=== PATIENT | male | born 1960 | race Caucasian/White ===

== ENCOUNTER 2017-08-22 13:52 | Emergency (ER) | payer BC, OTHER ==
[2017-08-22] MEDS ORDERED: ALBUTEROL 2.5 MG/3 ML NEB SOL ONE (14:37)
[2017-08-22] MEDS ORDERED: IPRATROPIUM BROM 0.5MG/2.5ML ONE (14:37)
--- NOTE | 2017-08-22 15:11 | RAD REPORT ---
EXAM DESCRIPTION: Kwaku Ruffin (2 Views)08/22/2017 2:53 pm CLINICAL HISTORY: Cough COMPARISON: 2009 FINDINGS: The lungs appear clear of acute infiltrate. The heart is normal size IMPRESSION: No acute abnormalities displayed
--- NOTE | 2017-08-22 15:23 | ER ---
Nurse's Notes [facility] Name: Brain Guadarrama Age: 57 yrs Sex: Male : 1960 Arrival Date: 08/22/2017 Time: 13:57 Bed 6 Private MD: Abhi Vaughn Diagnosis: Bronchitis, not specified as acute or chronic Presentation: 08/22 14:00 Presenting complaint: Patient states: productive cough for 3 days. Transition of care: la1 patient was not received from another setting of care. Onset of symptoms was August 22, 2017. Care prior to arrival: None. 14:00 Method Of Arrival: Ambulatory la1 14:00 Acuity: LISA 3 la1 Historical: - Allergies: 14:00 No Known Allergies; la1 - PMHx: 14:00 None; la1 - Immunization history:: Adult Immunizations up to date. - Social history:: Smoking status: Patient/guardian denies using tobacco. Screenin:09 Abuse screen: Denies threats or abuse. Nutritional screening: No deficits noted. ae1 Tuberculosis screening: No symptoms or risk factors identified. Fall Risk None identified. Assessment: 14:09 General: Appears in no apparent distress. uncomfortable, Behavior is calm, cooperative. ae1 Pain: Complains of pain in uvula, left aspect of posterior pharynx and right aspect of posterior pharynx. Neuro: Level of Consciousness is awake, alert, obeys commands, Oriented to person, place, time, situation. Cardiovascular: Heart tones S1 S2 present Patient's skin is warm and dry. Respiratory: Airway is patent Respiratory effort is even, unlabored, Breath sounds are clear bilaterally. GI: Bowel sounds present X 4 quads. Abd is soft and non tender X 4 quads. Patient currently denies diarrhea, nausea, pain, vomiting. : No signs and/or symptoms were reported regarding the genitourinary system. EENT: Reports nasal congestion Painful swallowing. nasal discharge. Derm: Skin is pale. Musculoskeletal: No signs and/or symptoms reported regarding the musculoskeletal system. 14:09 Respiratory: Reports shortness of breath cough that is productive, hacking. ae1 Vital Signs: 14:00 Pulse 86; Resp 16; Temp 98.2(TE); Pulse Ox 100% on R/A; Weight 104.33 kg; Height 5 ft. la1 11 in. (180.34 cm); 14:01 BP 122 / 86; la1 15:26 BP 133 / 82; Pulse 87; Resp 16; Temp 98(O); Pulse Ox 95% on R/A; ae1 14:00 Body Mass Index 32.08 (104.33 kg, 180.34 cm) la1 ED Course: 13:57 Patient arrived in ED. rg4 13:57 Abhi Vaughn MD is Private Physician. rg4 14:00 Triage completed. la1 14:01 Arm band placed on left wrist. la1 14:08 Jan Subramanian, RN is Primary Nurse. ae1 14:11 Brandi Conde FNP-C is [facility]. kb 14:11 Bed in low position. Call light in reach. Side rails up X 1. Pulse ox on. NIBP on. ae1 14:12 David Menezes MD is Attending Physician. kb 14:51 Chest Pa And Lat (2 Views) XRAY In Process Unspecified. EDMS 15:27 No provider procedures requiring assistance completed. Patient did not have IV access ae1 during this emergency room visit. Administered Medications: 14:22 Drug: DuoNeb (3:1) (2.5 mg - 0.5 mg) 3 ml Route: Nebulizer; ae1 15:30 Follow up: Response: Other; SOB decreased. ae1 15:30 Not Given (Patient was discharged prior to medication administration, provider ae1 notified. ): predniSONE 40 mg PO once Intake: Outcome: 15:22 Discharge ordered by MD. kb 15:27 Discharged to home ambulatory, with significant other. ae1 15:27 Condition: stable 15:27 Discharge instructions given to patient, Instructed on discharge instructions, follow up and referral plans. medication usage, Demonstrated understanding of instructions, Prescriptions given X 2. 15:31 Patient left the ED. ae1 Signatures: Dispatcher [employer] EDMS Brandi Conde FNP-C FNP-Ckb Attema, Lee, RN RN la1 Jan Subramanian, RN RN ae1 Cleopatra Diaz rg4 Corrections: (The following items were deleted from the chart) 15:31 15:26 BP 133 / 82; Pulse 87bpm; Pulse Ox 95% RA; ae1 ae1
--- NOTE | 2017-08-22 15:23 | EDPHYS ---
Physician Documentation [facility] Name: Brain Guadarrama Age: 57 yrs Sex: Male : 1960 Arrival Date: 08/22/2017 Time: 13:57 Bed 6 Private MD: Abhi Vaughn ED Physician David Menezes HPI: 08/22 14:19 This 57 yrs old Male presents to ER via Ambulatory with complaints of Chest kb Congestion, Cough. 14:19 The patient or guardian reports cough, that is intermittent, described as moderate, kb with no sputum. Onset: The symptoms/episode began/occurred 2 day(s) ago. Severity of symptoms: At their worst the symptoms were moderate, in the emergency department the symptoms are unchanged. Modifying factors: The symptoms are alleviated by nothing, the symptoms are aggravated by nothing. Associated signs and symptoms: Pertinent positives: rhinorrhea, sore throat, Pertinent negatives: chest pain, diarrhea, ear ache, fever, nausea, vomiting. The patient has not experienced similar symptoms in the past. The patient has not recently seen a physician. 14:20 Pt states he has had a cough, congestion, sore throat and not able to sleep due to kb cough. States it started 2 days ago. Started with runny nose, then sore throat and now cough. "Feels like bronchitis or pneumonia.". Historical: - Allergies: 14:00 No Known Allergies; la1 - PMHx: 14:00 None; la1 - Immunization history:: Adult Immunizations up to date. - Social history:: Smoking status: Patient/guardian denies using tobacco. ROS: 14:20 Constitutional: Negative for fever, chills, and weight loss, Cardiovascular: Negative kb for chest pain, palpitations, and edema, Abdomen/GI: Negative for abdominal pain, nausea, vomiting, diarrhea, and constipation, Back: Negative for injury and pain, MS/Extremity: Negative for injury and deformity, Skin: Negative for injury, rash, and discoloration, Neuro: Negative for headache, weakness, numbness, tingling, and seizure. 14:20 ENT: Positive for rhinorrhea, sore throat. 14:20 Respiratory: Positive for cough, with no reported sputum, Negative for dyspnea on exertion, hemoptysis, orthopnea, pleurisy, shortness of breath, sputum production, wheezing. Exam: 14:20 Constitutional: This is a well developed, well nourished patient who is awake, alert, kb and in no acute distress. Head/Face: Normocephalic, atraumatic. Neck: Trachea midline, no thyromegaly or masses palpated, and no cervical lymphadenopathy. Supple, full range of motion without nuchal rigidity, or vertebral point tenderness. No Meningismus. Chest/axilla: Normal chest wall appearance and motion. Nontender with no deformity. No lesions are appreciated. Cardiovascular: Regular rate and rhythm with a normal S1 and S2. No gallops, murmurs, or rubs. Normal PMI, no JVD. No pulse deficits. Respiratory: Lungs have equal breath sounds bilaterally, clear to auscultation and percussion. No rales, rhonchi or wheezes noted. No increased work of breathing, no retractions or nasal flaring. Abdomen/GI: Soft, non-tender, with normal bowel sounds. No distension or tympany. No guarding or rebound. No evidence of tenderness throughout. Skin: Warm, dry with normal turgor. Normal color with no rashes, no lesions, and no evidence of cellulitis. MS/ Extremity: Pulses equal, no cyanosis. Neurovascular intact. Full, normal range of motion. Neuro: Awake and alert, GCS 15, oriented to person, place, time, and situation. Cranial nerves II-XII grossly intact. Motor strength 5/5 in all extremities. Sensory grossly intact. Cerebellar exam normal. Normal gait. 14:20 ENT: External ear(s): are unremarkable, Ear canal(s): are normal, TM's: are normal, Nose: is normal, Mouth: is normal, Posterior pharynx: Airway: normal, Tonsils: are normal in appearance, with erythema, Uvula: normal, midline, swelling, is not appreciated, erythema, that is moderate, exudate, is not appreciated. Vital Signs: 14:00 Pulse 86; Resp 16; Temp 98.2(TE); Pulse Ox 100% on R/A; Weight 104.33 kg; Height 5 ft. la1 11 in. (180.34 cm); 14:01 BP 122 / 86; la1 15:26 BP 133 / 82; Pulse 87; Resp 16; Temp 98(O); Pulse Ox 95% on R/A; ae1 14:00 Body Mass Index 32.08 (104.33 kg, 180.34 cm) la1 MDM: 14:12 Patient medically screened. kb 14:20 Data reviewed: vital signs, nurses notes. Data interpreted: Pulse oximetry: on room air kb is 100 %. Interpretation: normal. 15:20 Counseling: I had a detailed discussion with the patient and/or guardian regarding: the kb historical points, exam findings, and any diagnostic results supporting the discharge/admit diagnosis, lab results, radiology results, the need for outpatient follow up, a family practitioner, to return to the emergency department if symptoms worsen or persist or if there are any questions or concerns that arise at home. 08/22 14:16 Order name: Flu kb 08/22 14:16 Order name: Strep; Complete Time: 14:51 kb 08/22 14:16 Order name: Chest Pa And Lat (2 Views) XRAY; Complete Time: 15:12 kb 08/22 14:16 Order name: Influenza Screen (A ; Complete Time: 14:51 EDMS 08/22 14:50 Order name: Throat Culture EDMS Administered Medications: 14:22 Drug: DuoNeb (3:1) (2.5 mg - 0.5 mg) 3 ml Route: Nebulizer; ae1 15:30 Follow up: Response: Other; SOB decreased. ae1 15:30 Not Given (Patient was discharged prior to medication administration, provider ae1 notified. ): predniSONE 40 mg PO once Disposition: 16:08 Co-signature as Attending Physician, David Menezes MD I agree with the assessment and kdr plan of care. Disposition: 08/22/17 15:22 Discharged to Home. Impression: Bronchitis, not specified as acute or chronic. - Condition is Stable. - Discharge Instructions: Acute Bronchitis, [id number]. - Prescriptions for Prednisone 20 mg Oral Tablet - take 1 tablet by ORAL route once daily for 5 days; 5 tablet. Albuterol Sulfate 90 mcg/actuation - inhale 1-2 puff by INHALATION route every 4-6 hours; 1 Inhaler. - Medication Reconciliation Form, Thank You Letter, Antibiotic Education, Prescription Opioid Use form. - Follow up: Emergency Department; When: As needed; Reason: Worsening of condition. Follow up: Private Physician; When: 2 - 3 days; Reason: Recheck today's complaints, Continuance of care, Re-evaluation by your physician. Signatures: Dispatcher [employer] Brandi Germain, VICTOR MANUELC DHIRAJ-David Freeman MD MD kdr Attema, Lee, RN RN la1 Jan Subramanian RN RN ae1
== END 2017-08-22 15:31 | disposition home or self-care (01) ==
LOC: ER 13:52
DX: J40 Bronchitis, not specified as acute or chronic (principal)
CPT/HCPCS: 71046; 87070; 87081; 87804; 94640; 99284